=== PATIENT | male | born 1935 | race Caucasian/White ===

== ENCOUNTER 2019-11-06 12:17 | Outpatient (CLI) | payer OTHER, SELFPAY ==
--- NOTE | ~2019-11-06 | XR_ITS ---
EXAMINATION: XR lg joint inject/asp w image DATE: 11/06/2019 13:30 INDICATION: Left glenohumeral osteoarthritis TECHNIQUE: A time-out was performed to verify the patient's name, date of , and procedure to b e performed. The procedure including the risks, benefits, and alternatives was discussed with the pat ient. Risks discussed included bleeding and infection. The patient understood the risks and agreed to proceed. The skin overlying the rotator cuff interval of the left glenohumeral joint was prepped an d draped in usual sterile fashion. Anesthetic was administered with 1% lidocaine subcutaneously. A 22 G needle was advanced under fluoroscopic guidance into the joint. Injection of 0.6 mL of Omnipaqu e 240 confirmed intra-articular position of the needle. Subsequently, injectate consisting of 4 mL o f a 3:1 mixture of 1% lidocaine:80 mg/mL Depo-Medrol was instilled for a total dosage of 80 mg Depo-M edrol. Washout of contrast was seen confirming intra-articular administration. The needle was removed and the entry site was cleaned and dressed. There were no immediate complications. Fluoroscopy expo sure time was 0.1 minutes. The total number of images was 2. FINDINGS: Real-time fluoroscopy demonstrates the needle in the left glenohumeral joint. Patient's ajith n prior to procedure:11/14. Patient's pain following the procedure: 07/17. IMPRESSION: 1. Left glenohumeral joint injection of local anesthetic and steroid with decrease in the patient's p resenting pain. Reviewed, dictated and finalized at location A. IMPRESSION: 1. Left glenohumeral joint injection of local anesthetic and steroid with decre ase in the patient's presenting pain.
== END 2019-11-06 12:18 | disposition home or self-care (01) ==
LOC: ANHIMG 12:23
PROVIDERS: PCP Family Medicine Adolescent Medicine; Visit Provider Orthopaedic Surgery
DX: M19.012 Primary osteoarthritis, left shoulder (principal)
CPT/HCPCS: 20610; 77002; J1040; Q9966

== ENCOUNTER → 2020-12-05 02:03 | Outpatient (CLI) | payer OTHER, SELFPAY ==
[2020-12-05 17:04] LABS: SARS-CoV-2 RNA PCR Negative
== END ==
PROVIDERS: PCP Family Medicine Adolescent Medicine; Visit Provider Plastic Surgery
DX: Z01.812 Encounter for preprocedural laboratory examination (principal); Z20.822 Contact with and (suspected) exposure to COVID-19
CPT/HCPCS: C9803; U0003; U0005

== ENCOUNTER 2020-12-08 00:26 | Day surgery (SDC) | payer OTHER, SELFPAY ==
[2020-12-01 13:56] VITALS: BMI 30.5
--- NOTE | 2020-12-08 07:24 | WPDHPUPDATE1 ---
History and Physical Update Update Date/Time: 12/08/20 07:24 History and Physical has been reviewed, including an updated exam of the patient. There are NO changes in the patient's condition. Risks, benefits, and alternatives have been discussed and questions answered. Patient agrees to proceed with procedure.
[2020-12-08 11:17] VITALS: BP 130/59; PULSE 80; RESP 16; TEMP 36.3; O2SAT 100
[2020-12-08 12:45] VITALS: BP 165/72; PULSE 61; RESP 20; O2SAT 98
[2020-12-08] MEDS: LIDO 1%/EPINEPHRINE 1:100,000 50 ML VIAL INFILTRATE (12:47)
[2020-12-08 12:55] VITALS: BP 150/74; PULSE 63; RESP 20; O2SAT 99
[2020-12-08 13:05] VITALS: BP 150/74; PULSE 66; RESP 20; O2SAT 99
[2020-12-08 13:13] VITALS: BP 144/67; PULSE 60; RESP 16; O2SAT 98
--- NOTE | 2020-12-08 13:27 | PM.OP ---
Procedure Note - Brief Procedure Note - Brief Date of procedure: 12/08/20 Pre-op diagnosis: right carpal tunnel syndrome Post-op diagnosis: same Procedure performed: R OCTR Anesthesia: local Surgeon: Curt Sorto MD Estimated blood loss (mL): 0 Drains: No Packing: No Pathology: none sent Complications: No immediate complications Condition: stable Disposition: same day
--- NOTE | 2020-12-08 16:27 | P.OP_ITS ---
Procedure Note - Detailed Date of procedure: 12/08/20 Pre-op diagnosis: right carpal tunnel syndrome Post-op diagnosis: same Procedure performed: Right open carpal tunnel release Description of procedure: The right wrist was marked in the holding area. The patient was taken to the operating room placed supine on the operating table. This case was done under local anesthetic and a time-out was held. The site was prepped and draped in usual fashion. The area was marked and infiltrated with 1% lidocaine with epinephrine. The tourniquet was inflated to 250 mmHg. The incision was made as marked and dissection was carried bluntly through the subcutaneous tissue to the palmar aponeurosis. This in the transverse carpal ligament were incised the 15. Blade. The division was continued distally and proximally to completely release it. There is no unusual anatomy noted. The skin wound was closed with interrupted 4-0 nylon suture. A small bandage with Rocco wrap was applied the tourniquet was released and is discharged with instruct ions in wound care and follow-up. He has a prescription for hydrocodone 5/325 10. Anesthesia: local Surgeon: Curt Sorto MD Estimated blood loss (mL): 0 Drains: No Packing: No Pathology: none sent Complications: No immediate complications Condition: stable Disposition: same day
== END 2020-12-08 13:40 | disposition home or self-care (01) ==
PROVIDERS: PCP Family Medicine Adolescent Medicine; Visit Provider Plastic Surgery
PROC: (CPT 64721; principal; 2020-12-08 12:00)
DX: G56.01 Carpal tunnel syndrome, right upper limb (principal)
CPT/HCPCS: 64721; A9270; C9803; U0003; U0005

== ENCOUNTER → 2021-01-18 08:53 | Outpatient (CLI) | payer OTHER, SELFPAY ==
--- NOTE | ~2021-01-18 | MR_ITS ---
EXAMINATION: MR lumbar spine wo con DATE: 01/18/2021 09:55 INDICATION: Neurogenic claudication of both legs. Low back pain. Bilateral leg weakness. TECHNIQUE: Magnetic resonance imaging (MRI) of the lumbar spine was performed without intravenous con trast. Sequences included sagittal T2-weighted FSE, sagittal T2-weighted FS FSE, sagittal T1-weighted FSE, and axial T2-weighted FSE. COMPARISON: None FINDINGS: There is 4 degrees levocurvature of lumbar spine. There is 3 mm anterolisthesis of L3 on L4 , 3 mm retrolisthesis of L4 on L5, and 3 mm anterolisthesis of L5 on S1. There are Schmorl's nodes at most levels. There is mildly decreased disc height at L3-L4, severely decreased disc height at L4-L5 , and moderately decreased disc height at L5-S1 with endplate remodeling. The distal spinal cord sign al intensity is normal. The conus medullaris is at L1. The following disc levels are specifically dis cussed: L1-L2: The disc does not extend beyond the endplate margin. There is mild bilateral facet joint osteo arthritis. There is no neural foraminal stenosis. There is no central canal stenosis. L2-L3: The disc is bulging. There is moderate bilateral facet joint osteoarthritis. There is mild rig ht and moderate left neural foraminal stenosis. There is no central canal stenosis. L3-L4: The disc is bulging as an annular fissure. There is severe bilateral facet joint osteoarthriti s. There is moderate bilateral neural foraminal stenosis. There is moderate central canal stenosis. L4-L5: The disc is bulging and has an annular fissure. There is severe right and moderate left facet joint osteoarthritis. There is moderate bilateral neural foraminal stenosis. There is mild central ca nal stenosis with moderate stenosis of the lateral recesses. L5-S1: The disc is bulging as an annular fissure. There is severe bilateral facet joint osteoarthriti s. There is mild bilateral neural foraminal stenosis. There is mild central canal stenosis. IMPRESSION: 1. Severe lumbar spondylosis. Reviewed, dictated and finalized at location A.
== END ==
PROVIDERS: PCP Family Medicine Adolescent Medicine; Visit Provider Family Medicine Adolescent Medicine
DX: M48.062 Spinal stenosis, lumbar region with neurogenic claudication (principal); M47.816 Spondylosis without myelopathy or radiculopathy, lumbar region
CPT/HCPCS: 72148

== ENCOUNTER → 2021-03-06 08:48 | Outpatient (CLI) | payer OTHER, SELFPAY ==
--- NOTE | ~2021-03-06 | XR_ITS ---
EXAMINATION:XR cervical spine 4-5V DATE: 03/06/2021 09:12 INDICATION: Bilateral numbness in the fingers TECHNIQUE: AP, lateral, lateral swimmers and odontoid views of the cervical spine are provided. COMPARISON: 05/01/2018 FINDINGS: Alignment is normal. The odontoid is intact. No fracture is identified. The vertebral body heights are maintained. There is unchanged moderate loss of intervertebral disc space height at C5-6 and C6-7. Degenerative osteophytes project from the anterior endplates of multiple vertebral bodies. There is moderate to severe facet and uncovertebral joint osteoarthritis of the mid and lower cervica l spine. Prevertebral soft tissues are normal. IMPRESSION: 1. Moderate cervical spondylosis without acute findings or significant interval change. Reviewed, dictated and finalized at location A.
== END ==
PROVIDERS: PCP Family Medicine Adolescent Medicine; Visit Provider Plastic Surgery
DX: M47.22 Other spondylosis with radiculopathy, cervical region (principal)
CPT/HCPCS: 72050

== ENCOUNTER → 2021-04-06 14:42 | Outpatient (CLI) | payer OTHER, SELFPAY ==
--- NOTE | ~2021-04-06 | MR_ITS ---
EXAMINATION: MR cervical spine wo con EXAM DATE: 04/06/2021 15:27 INDICATION: Myelopathy. Left neck tingling, bilateral hand numbness. TECHNIQUE: Multi-sequential, multiplanar MR images of the cervical spine were obtained without contra st. Axial T2, axial T2 MERGE sequence. Sagittal T1, T2, T2 fat saturation images also obtained. Th ere is no prior study for comparison. FINDINGS: Cord compression at C4-5 level due to both disc bulge and also some ligamentum flavum hyper trophy posteriorly, central canal narrowed to 4 mm and no CSF space surrounding any portion of it. Ti ny amount of increased T2 cord signal intensity just below this without any expansion. 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 Spinal cord al so being mildly compressed at C6-7 level. There is moderate disc disease C5-6 and 6-7, mild to moderate loss of the disc height C4-5. There is 2 mm anterolisthesis C7 on T1. The vertebral bodies are otherwise aligned. The spinal cord signal int ensity and intrinsic morphology is normal. Cervicomedullary junction is normal in appearance. There are no suspicious marrow signal abnormalities. Level by level evaluation: C2-C3: Disc does not extend beyond the endplate margin. Uncovertebral joint arthropathy: Mild bilateral. Facet joint arthropathy: Mild to moderate left, mild right. Neural foraminal stenosis: Mild left. Central canal stenosis: No stenosis. C3-C4: There is a mild diffuse disc bulge. Uncovertebral joint arthropathy: Moderate right, mild to moderate left. Facet joint arthropathy: Moderate right, mild to moderate left. Neural foraminal stenosis: Moderate to severe right, moderate left. Central canal stenosis: Mild. C4-C5: There is a large diffuse disc bulge. Uncovertebral joint arthropathy: Moderate to severe right, moderate left. Facet joint arthropathy: Moderate to severe bilateral. Neural foraminal stenosis: Severe right, moderate to severe left. Central canal stenosis: Moderate to severe . Central canal measures 4 mm in mid sagittal AP diameter . C5-C6: There is a mild to moderate diffuse disc bulge. Uncovertebral joint arthropathy: Severe left, moderate to severe right. Facet joint arthropathy: Moderate to severe bilateral. Neural foraminal stenosis: Severe left, moderate to severe right. Central canal stenosis: Mild to moderate. C6-C7: There is a moderate diffuse disc bulge. Uncovertebral joint arthropathy: Severe bilateral. Facet joint arthropathy: Moderate bilateral. Neural foraminal stenosis: Severe left, moderate to severe right. Central canal stenosis: Moderate . Central canal measures 6 mm in mid sagittal AP diameter . C7-T1: Disc does not extend beyond the endplate margin. Uncovertebral joint arthropathy: Moderate to severe left, moderate right. Facet joint arthropathy: Moderate to severe bilateral. Neural foraminal stenosis: Moderate to severe left, moderate right. Central canal stenosis: No stenosis. IMPRESSION: 1. Chronic appearing cord compression at C4-5 with moderate to severe central canal stenosis and sma ll cord signal abnormality below this probably myelomalacia. 2. Advanced multilevel spondylosis with significant neural foraminal stenosis. Reviewed, dictated and finalized at location A. IMPRESSION: 1. Chronic appearing cord compression at C4-5 with moderate to severe central canal stenosis and small cord signal abnormality below this probably myelomalac ia. 2. Advanced multilevel spondylosis with significant neural foraminal stenosis.
== END ==
PROVIDERS: PCP Family Medicine Adolescent Medicine; Visit Provider Nurse Practitioner Acute Care
DX: G95.9 Disease of spinal cord, unspecified (principal); G95.20 Unspecified cord compression; M48.02 Spinal stenosis, cervical region; M47.812 Spondylosis without myelopathy or radiculopathy, cervical region
CPT/HCPCS: 72141

== ENCOUNTER → 2021-12-11 15:19 | Outpatient (CLI) | payer OTHER, SELFPAY ==
--- NOTE | ~2021-12-11 | XR_ITS ---
XR knee LT min 4V, XR tibia fibula LT 2V 12/11/2021 15:52 Indication: Left lower leg pain Procedure: 2 views left tibia/fibula and 4 views left knee Comparison: No prior studies for comparison. Findings: There is moderate-severe tricompartment osteoarthritis of the left knee. 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 No significant karyna nt effusion. Impression: 1: No acute fracture. 2: Moderate-severe tricompartment osteoarthritis of the left knee. 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 Luis Eduardo mmend verification with CT angiography. Reviewed, dictated and finalized at location B. Impression: 1: No acute fracture. 2: Moderate-severe tricompartment osteoarthritis of the left knee. 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 Recommend verification with CT angiography. Impression: 1: No acute fracture. 2: Moderate-severe tricompartment osteoarthritis of the left knee. 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 Recommend verification with CT angiography.
== END ==
PROVIDERS: PCP Family Medicine Adolescent Medicine; Visit Provider Chiropractor Rehabilitation
DX: M79.669 Pain in unspecified lower leg (principal); M17.12 Unilateral primary osteoarthritis, left knee; I70.8 Atherosclerosis of other arteries
CPT/HCPCS: 73564; 73590

== ENCOUNTER → 2023-01-03 07:36 | Outpatient (CLI) | payer OTHER, SELFPAY ==
--- NOTE | ~2023-01-03 | US_ITS ---
EXAMINATION: US abdomen limited DATE: 01/03/2023 08:19 INDICATION: Right upper quadrant pain TECHNIQUE: Multiple grayscale and Doppler ultrasound images of the abdomen were obtained. COMPARISON: 11/06/2007 FINDINGS: Bowel gas obscures visualization of the pancreas. The visualized portions of the pancreas a re unremarkable. The liver is normal with normal echogenicity and echotexture. No surface nodularity. Normal hepatopetal flow in the main portal vein. The gallbladder is normal with no abnormal wall thi ckening, pericholecystic fluid or stones. The normal common bile duct measures 3 mm. There was no son ographic Garcia sign. IMPRESSION: 1. Normal sonographic study of the gallbladder. Reviewed, dictated and finalized at location L.
== END ==
PROVIDERS: PCP Family Medicine Adolescent Medicine; Visit Provider Nurse Practitioner Family
DX: R10.9 Unspecified abdominal pain (principal)
CPT/HCPCS: 76705

== ENCOUNTER 2023-02-14 08:17 | Outpatient (CLI) | payer OTHER, SELFPAY ==
--- NOTE | 2023-02-14 08:30 | ECHO_ITS ---
Patient Info Name: Martin Sewell Age: 87 years : 1935 Gender: Male Ht: 68 in Wt: 188 lbs BSA: 2.04 m2 HR: 68 bpm BP: 143 / 70 mmHg Technical Quality: Fair Exam Date: 02/14/2023 8:41 AM Exam Location: [facility] Patient Status: Outpatient Admit Date: 02/14/2023 Staff Ordering Physician: Lee Holcomb MD Machine Loader: Kaleigh Garcia RDCS Attending Provider: Lee Holcomb MD Referring Physician: Aicha HOLCOMB; Exam Type: CA echo doppler color flow Study Info Indications R01.1 - Cardiac murmur, unspecified Complete two-dimensional, color flow and Doppler transthoracic echocardiogram is performed. Summary 1. Complete two-dimensional, color flow and Doppler transthoracic echocardiogram is performed. 2. Left ventricular chamber dimension is normal. 3. Left ventricular systolic function is normal, estimated at 65-70%. 4. There is mild concentric increased left ventricular wall thickness. 5. The left ventricular diastolic function is grade I diastolic dysfunction. 6. E/e' 12 is mildly elevated. 7. Global longitudinal strain is abnormal at -12.1%. 8. There is severe aortic valve sclerosis. 9. There is mild aortic valve stenosis with a peak velocity of 246 cm/s, mean gradient of 11 mmHg, and aortic valve area of 1.7 cm2. 10. There is mild aortic valve regurgitation. 11. No pulmonary hypertension, estimated pulmonary arterial systolic pressure is 33 mmHg. Left Ventricle E/e' 12 is mildly elevated. Global longitudinal strain is abnormal at -12.1%. Left ventricular chamber dimension is normal. Left ventricular systolic function is normal, estimated at 65-70%. There is mild concentric increased left ventricular wall thickness. The left ventricular diastolic function is grade I diastolic dysfunction. Right Ventricle Right ventricular systolic function is normal and with normal TAPSE 2.8 cm. Right ventricular chamber dimension is normal. Left Atria Left atrial chamber dimension is normal. Right Atria Right atrial chamber dimension is normal. Aortic Valve The aortic valve is probable trileaflet. There is severe aortic valve sclerosis. There is mild aortic valve stenosis with a peak velocity of 246 cm/s, mean gradient of 11 mmHg, and aortic valve area of 1.7 cm2. There is mild aortic valve regurgitation. Pulmonic Valve There is no pulmonic regurgitation. Mitral Valve There is no mitral valve stenosis. There is no mitral valve regurgitation. Tricuspid Valve There is no tricuspid valve regurgitation. No pulmonary hypertension, estimated pulmonary arterial systolic pressure is 33 mmHg. Pericardium/Pleural There is no pericardial effusion. Inferior Vena Cava Normal inferior vena cava with >50% collapse upon inspiration consistent with normal right atrial pressure, 5 mmHg. Aorta The aortic root size at the sinus of Valsalva is normal. Left Ventricular Outflow Tract Name Value Normal LVOT 2D LVOT Diameter 2.1 cm LVOT Doppler LVOT Peak Gradient 5 mmHg LVOT Mean Gradient 3 mmHg LVOT VTI 24 cm LVOT VTI/AV VTI Ratio 0.5 LVOT Stroke Volume
== END 2023-02-14 08:18 | disposition home or self-care (01) ==
PROVIDERS: PCP Family Medicine Adolescent Medicine; Visit Provider Family Medicine Adolescent Medicine
DX: R01.1 Cardiac murmur, unspecified (principal); I51.7 Cardiomegaly; R93.1 Abnormal findings on diagnostic imaging of heart and coronary circulation; I35.8 Other nonrheumatic aortic valve disorders; I35.1 Nonrheumatic aortic (valve) insufficiency
CPT/HCPCS: 93306

== ENCOUNTER 2023-02-28 00:23 | Day surgery (SDC) | payer OTHER, SELFPAY ==
[2023-02-20 12:41] VITALS: BMI 28.9
--- NOTE | 2023-02-27 20:42 | PM.HPGS ---
History of Present Illness History of Present Illness Consent: Risks, benefits, and alternatives have been discussed and questions answered. Patient agrees to proceed with procedure. Chief complaint: GERD, abnormal weightloss Narrative: Martin Sewell is a 87 year old male with a?long history of acid reflux.? He had been on omeprazole for years and did very well on that.? A few years ago however he had to have stents placed in his legs.? He was placed on aspirin and clopidogrel.? He was told then that omeprazole could not be taken with clopidogrel and was switched to pantoprazole.? He has never had is much benefit with pantoprazole as he had with previous therapy.? Recently he has had more and more problems with acid reflux including burning that is worse at night and comes up into his throat.? He had what he called an eruption about 2 months ago with a great deal of acid coming up to his throat and ever since then has had burning in the throat is far up as the tonsils. Hehaas lost . Review of Systems Review of Systems: All systems reviewed & are unremarkable except as noted in HPI and below PMFSH Past Medical History Medical History (Updated 03/01/23 @ 15:31 by Ej Sharpe MD) Aortic stenosis (02/2023) Mild on Echo 02/27 (Valve area 1.7) Chronic kidney disease, stage 3a GERD (gastroesophageal reflux disease) Hyperlipidemia Hypertension PVD (peripheral vascular disease) Surgical History Surgical History History of carpal tunnel surgery of right wrist (12/2020) Hx of rotator cuff surgery (04/2020) Family History Family History Father Carcinoma of colon Acute myocardial infarction Colon polyp Mother Hypertension Diabetes mellitus Sibling Diabetes mellitus Social History Social History Smoking status: Never smoker Second hand tobacco smoke exposure: No Alcohol intake: never Substance use: never Substance use type: does not use Lack of Transportation: No Lack of Food: Never True Current Housing: I Have Housing Concerned About Future Housing: No Difficulty Paying Gas/Electric Bills: No Difficulty Paying for Meds: No Currently Unemployed: No Education: High School Diploma/GED Difficulty w/ Childcare or Family Care: No Living arrangements: with family Occupation/Education: retired Gender identity (if verbalized by the patient): Male Sexual Orientation (if Verbalized by the Patient): Straight or Heterosexual Spiritual care concerns: No Agree to blood products: Yes Meds Home Medications and Allergies Home Medications Medication Instructions Recorded Confirmed Type lisinopril 20 mg tablet See Rx Instructions .Route 09/14/22 02/20/23 Rx .COMPLEX #90 tabs simvastatin 20 mg tablet 20 mg PO DAILY #90 tabs 11/11/22 02/20/23 Rx clopidogrel 75 mg tablet 75 mg PO DAILY 12/24/22 02/28/23 History gabapentin 300 mg capsule 900 mg PO QHS #270 caps 02/17/23 02/20/23 Rx zolpidem 12.5 mg tablet,extended 12.5 mg PO QHS #90 tabs 02/19/23 02/20/23 Rx release,multiphase pantoprazole 40 mg tablet,delayed 40 mg PO DAILY 02/20/23 02/20/23 History release vitamin B complex 1 tablet PO DAILY 02/20/23 02/20/23 History Allergies Allergy/AdvReac Type Severity Reaction Status Date / Time No Known Allergies Allergy Verified 02/28/23 11:45 Exam Const: General: alert Orientation/consciousness: patient oriented x3 Resp: Auscultation: clear to auscultation bilaterally Cardio: Rhythm: regular rhythm GI: GI Palp: Yes Soft to palpation and No Tenderness to palpation present (GI) Neuro: General: patient oriented x3 Assessment and Plan Assessment and plan (1) GERD (gastroesophageal reflux disease): Code(s): K21.9 - Gastro-esophageal reflux disease without esophagitis Status: Acute As
[2023-02-28 11:46] VITALS: BP 147/57; PULSE 57; RESP 18; TEMP 36.1; O2SAT 100
[2023-02-28] MEDS: LACTATED RINGERS 1,000 ML 150 ML IV CONT (11:53)
--- NOTE | 2023-02-28 12:25 | WPDANESEPPF ---
Anes - Initial Pre Proc Eval Procedure: Operation Date: 02/28/23 13:00 Proposed Procedures p Esophagogastroduodenoscopy - Ej Sharpe MD Date/Time: 02/28/23 12:25 Surgeon: Ej Sharpe MD Pre Op Diagnosis: GERD, abnormal weightloss Patient Data Age: 87 Gender: M Height: 1.73 m Weight: 84.6 kg Last Vital Signs Temp 36.1 C L 02/28/23 11:46 Pulse 57 L 02/28/23 11:46 Resp 18 02/28/23 11:46 BP 147/57 H 02/28/23 11:46 Pulse Ox 100 02/28/23 11:46 O2 Del Method Room Air 02/28/23 11:46 Allergies Allergy/AdvReac Type Severity Reaction Status Date / Time No Known Allergies Allergy Verified 02/28/23 11:45 Home Medications Medication Instructions Recorded Confirmed Type lisinopril 20 mg tablet See Rx Instructions .Route 09/14/22 02/20/23 Rx .COMPLEX #90 tabs simvastatin 20 mg tablet 20 mg PO DAILY #90 tabs 11/11/22 02/20/23 Rx clopidogrel 75 mg tablet 75 mg PO DAILY 12/24/22 02/28/23 History gabapentin 300 mg capsule 900 mg PO QHS #270 caps 02/17/23 02/20/23 Rx zolpidem 12.5 mg tablet,extended 12.5 mg PO QHS #90 tabs 02/19/23 02/20/23 Rx release,multiphase pantoprazole 40 mg tablet,delayed 40 mg PO DAILY 02/20/23 02/20/23 History release vitamin B complex 1 tablet PO DAILY 02/20/23 02/20/23 History Patient hx anesthesia problems: none Family hx anesthesia problems: none Results Review: All pre-operative results and documents have been reviewed as part of the pre-operative evaluation. [facility] Past Medical History Medical History (Updated 03/01/23 @ 15:31 by Ej Sharpe MD) Aortic stenosis (02/2023) Mild on Echo 02/27 (Valve area 1.7) Chronic kidney disease, stage 3a GERD (gastroesophageal reflux disease) Hyperlipidemia Hypertension PVD (peripheral vascular disease) Surgical History Surgical History History of carpal tunnel surgery of right wrist (12/2020) Hx of rotator cuff surgery (04/2020) Family History Family History Father Carcinoma of colon Acute myocardial infarction Colon polyp Mother Hypertension Diabetes mellitus Sibling Diabetes mellitus Social History Social History Smoking status: Never smoker Second hand tobacco smoke exposure: No Alcohol intake: never Substance use: never Substance use type: does not use Lack of Transportation: No Lack of Food: Never True Current Housing: I Have Housing Concerned About Future Housing: No Difficulty Paying Gas/Electric Bills: No Difficulty Paying for Meds: No Currently Unemployed: No Education: High School Diploma/GED Difficulty w/ Childcare or Family Care: No Living arrangements: with family Occupation/Education: retired Gender identity (if verbalized by the patient): Male Sexual Orientation (if Verbalized by the Patient): Straight or Heterosexual Spiritual care concerns: No Agree to blood products: Yes Anes - Eval Final PreProcedure Day of Procedure 02/28/23 12:25 Patient weight: overweight Heart: regular rate and rhythm Lungs: clear to auscultation Airway: Mallampati scale class II Neurological: alert and oriented Last oral intake: >/= 8 hours ASA classification: IV Emergent: no Anesthetic plan: proceed Anesthesia type and monitoring: general GIVS and standard monitoring Results Review: All pre-operative results and documents have been reviewed as part of the pre-operative evaluation. Informed Consent: The patient's anesthetic plan and its attendant risks and benefits were discussed with the patient/family/POA. Questions were solicited and answers provided to the satisfaction of the patient/family/POA.
[2023-02-28 13:05] VITALS: BP 97/54; PULSE 58; RESP 18; O2SAT 100
[2023-02-28 13:15] VITALS: BP 102/55; PULSE 53; RESP 18; O2SAT 100
[2023-02-28 13:25] VITALS: BP 149/69; PULSE 57; RESP 16; O2SAT 100
== END 2023-02-28 13:40 | disposition home or self-care (01) ==
PROVIDERS: PCP Family Medicine Adolescent Medicine; Visit Provider Internal Medicine Gastroenterology
PROC: 0DJ08ZZ Inspection of Upper Intestinal Tract, Via Natural or Artificial Opening Endoscopic (ICD-10-PCS; CPT 43235; principal; 2023-02-28 13:00)
DX: K21.9 Gastro-esophageal reflux disease without esophagitis (principal); R63.4 Abnormal weight loss; I12.9 Hypertensive chronic kidney disease with stage 1 through stage 4 chronic kidney disease, or unspecified chronic kidney disease; N18.31 Chronic kidney disease, stage 3a; I35.0 Nonrheumatic aortic (valve) stenosis; E78.5 Hyperlipidemia, unspecified; I73.9 Peripheral vascular disease, unspecified; Z95.5 Presence of coronary angioplasty implant and graft; Z83.71 Family history of colonic polyps
CPT/HCPCS: 43235; J2704; J7120

== ENCOUNTER 2023-11-08 09:34 | Outpatient (CLI) | payer OTHER, SELFPAY ==
--- NOTE | ~2023-11-08 | XR_ITS ---
XR knee RT min 4V 11/08/2023 09:53 Indication: Bilateral primary osteoarthritis of the knee Procedure: 4 views right knee Comparison: No prior studies for comparison. Findings: There is moderate-severe tricompartment osteoarthritis. No fracture or subluxation. Small j oint effusion. There is atherosclerosis. Possible popliteal artery aneurysm. Impression: 1: Moderate-severe tricompartment osteoarthritis of the right knee. 2: Small knee effusion. Reviewed, dictated and finalized at location B. Impression: 1: Moderate-severe tricompartment osteoarthritis of the right knee. 2: Small knee effusion.
--- NOTE | ~2023-11-08 | XR_ITS ---
XR knee LT min 4V 11/08/2023 09:53 Indication: Bilateral osteoarthritis of the knees. Procedure: 4 views left knee Comparison: 12/11/2021 Findings: There is moderate tricompartment osteoarthritis, most severe at the patellofemoral compartm ent. No acute fracture or traumatic malalignment. There is an endovascular stents posterior to the kn ee. Impression: 1: Moderate tricompartment osteoarthritis of the left knee. Reviewed, dictated and finalized at location B. Impression: 1: Moderate tricompartment osteoarthritis of the left knee.
== END 2023-11-08 09:35 | disposition home or self-care (01) ==
PROVIDERS: PCP Family Medicine Adolescent Medicine; Visit Provider Orthopaedic Surgery
DX: M17.0 Bilateral primary osteoarthritis of knee (principal); M25.461 Effusion, right knee
CPT/HCPCS: 73564

== ENCOUNTER 2024-09-29 11:11 | Outpatient (CLI) | payer OTHER, SELFPAY ==
--- NOTE | ~2024-09-29 | XR_ITS ---
EXAMINATION: XR lumbar spine min 4V DATE: 09/29/2024 11:27 INDICATION: Low back pain, unspecified. TECHNIQUE: 5 views of lumbar spine including flexion and extension views were obtained. COMPARISON: Lumbar spine MRI 01/18/2021 FINDINGS: There is 7 degrees levocurvature of lumbar spine. There is 6 mm anterolisthesis of L3 on L4 . There is mild chronic anterior wedging of L1 and L2 vertebral bodies. There is moderately decreased disc height at L3-L4, severely decreased disc height at L4-L5, and moderately decreased disc height at L5-S1. The spine is hypomobile with flexion and extension. 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 IMPRESSION: 1. Severe lumbar spondylosis. Reviewed, dictated and finalized at location [facility].
== END 2024-09-29 11:12 | disposition home or self-care (01) ==
LOC: MICIMG 11:13
PROVIDERS: PCP Family Medicine Adolescent Medicine; Visit Provider Nurse Practitioner Family
DX: M47.816 Spondylosis without myelopathy or radiculopathy, lumbar region (principal)
CPT/HCPCS: 72110

== ENCOUNTER 2024-12-03 08:25 | Outpatient (CLI) | payer OTHER, SELFPAY ==
--- NOTE | ~2024-12-03 | MR_ITS ---
MRI of the lumbar spine Clinical History: Back pain Technique: Axial T2-weighted images, and sagittal T1-weighted, T2-weighted, and T2 fat-sat images wer e acquired. Findings: There is 5 mm anterolisthesis of L3 over L4. There is 4 mm retrolisthesis of L4 over L5. No fracture seen. No suspicious bone marrow signal abnormality. At L1-L2, there is minimal disc bulge with moderate facet arthropathy. No central canal stenosis or n eural foraminal narrowing. At L2-L3, there is minimal disc bulge with moderate facet arthropathy. No central canal stenosis. No neural foraminal narrowing. At L3-L4, there is moderate to advanced degenerative disc narrowing. There is disc bulge and severe f acet arthropathy, resulting in severe spinal canal stenosis/thecal sac compression. There is moderate to advanced left neural foraminal narrowing, and severe right neural foraminal narrowing. At L4-L5, there is advanced degenerative disc narrowing. There is diffuse disc bulge and severe facet arthropathy. There is moderate central canal stenosis. There is severe bilateral neural foraminal na rrowing, right worse than left. At L5-S1, there is severe degenerative disc narrowing. There is mild disc bulge with severe facet art hropathy. No central canal stenosis. There is moderate to advanced bilateral neural foraminal narrowi ng. Paravertebral soft tissues are unremarkable. Impression: Severe degenerative spondylosis from L3 through S1, as detailed above. 5 mm anterolisthesis of L3 over L4. 4 mm retrolisthesis of L4 over L5. Reviewed, dictated and finalized at [facility]. Impression: Severe degenerative spondylosis from L3 through S1, as detailed above. 5 mm anterolisthesis of L3 over L4. 4 mm retrolisthesis of L4 over L5.
== END 2024-12-03 08:26 | disposition home or self-care (01) ==
LOC: MICIMG 08:26
PROVIDERS: PCP Family Medicine Adolescent Medicine; Visit Provider Nurse Practitioner Family
DX: M47.816 Spondylosis without myelopathy or radiculopathy, lumbar region (principal); M47.817 Spondylosis without myelopathy or radiculopathy, lumbosacral region; M43.16 Spondylolisthesis, lumbar region
CPT/HCPCS: 72148